=== PATIENT | female | born 2000 | race Caucasian/White ===

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

== ENCOUNTER 2022-01-26 11:28 | Emergency (ER) | payer OTHER ==
[2022-01-26 11:34] VITALS: BP 114/74; PULSE 78; TEMP 98.6; BMI 24.7
== END 2022-01-26 12:00 | disposition left against medical advice (07) ==
LOC: JER 11:28
DX: R06.02 Shortness of breath (principal); R07.9 Chest pain, unspecified
CPT/HCPCS: 93005; 93010; 99281-25

== ENCOUNTER 2022-04-14 00:23 | Emergency (ER) | payer OTHER ==
[2022-04-14 01:03] VITALS: BP 108/75; PULSE 93; TEMP 98.1; BMI 26.5
[2022-04-14] MEDS ORDERED: DEXAMETHASONE 4 MG TABLET (FP) PO ONE (01:15)
[2022-04-14] MEDS ORDERED: ALBUTEROL SO4 2.5/IPRATROPIUM 0.5 INH SOL 3 ML VIAL.NEB. NEB ONE ×2 (01:30→01:45)
[2022-04-14] MEDS ORDERED: DEXAMETHASONE 4 MG TABLET (FP) ONE (01:30)
[2022-04-14] MEDS: ALBUTEROL SO4 2.5/IPRATROPIUM 0.5 INH SOL 3 ML VIAL.NEB. NEB SCH ×2 (01:36→01:51)
== END 2022-04-14 03:14 | disposition home or self-care (01) ==
LOC: JER 00:23
PROC: 3E0F7GC Introduction of Other Therapeutic Substance into Respiratory Tract, Via Natural or Artificial Opening (ICD-10-PCS; principal; 2022-04-14)
DX: J45.901 Unspecified asthma with (acute) exacerbation (principal)
CPT/HCPCS: 99283-25

== ENCOUNTER 2023-05-28 12:58 | Emergency (ER) | payer OTHER ==
[2023-05-28 13:08] VITALS: BP 103/60; PULSE 82; RESP 20; TEMP 98.5; BMI 25.7
[2023-05-28] MEDS ORDERED: DIPHTH,PERTUSS(ACELL),TET 0.5 ML DISP.SYRIN IM ONE ×2 (13:26→13:28)
== END 2023-05-28 14:04 | disposition home or self-care (01) ==
LOC: JERFT 12:58
PROC: 3E0234Z Introduction of Serum, Toxoid and Vaccine into Muscle, Percutaneous Approach (ICD-10-PCS; principal; 2023-05-28)
DX: S91.011A Laceration without foreign body, right ankle, initial encounter (principal); M25.471 Effusion, right ankle; W23.1XXA Caught, crushed, jammed, or pinched between stationary objects, initial encounter; Y93.9 Activity, unspecified; Y92.9 Unspecified place or not applicable
CPT/HCPCS: 90471; 90715; 99285-25

== ENCOUNTER 2023-11-27 09:46 | Emergency (ER) | payer OTHER ==
[2023-11-27 09:50] VITALS: BP 122/72; PULSE 77; RESP 18; TEMP 98.2; BMI 27.4
[2023-11-27] MEDS ORDERED: ALBUTEROL SO4 2.5/IPRATROPIUM 0.5 INH SOL 3 ML VIAL.NEB. NEB ONE ×2 (11:08→11:40)
== END 2023-11-27 13:18 | disposition home or self-care (01) ==
LOC: JERFT 09:46 → JER 09:46 → JERFT 13:18
PROC: 3E0F7GC Introduction of Other Therapeutic Substance into Respiratory Tract, Via Natural or Artificial Opening (ICD-10-PCS; principal; 2023-11-27)
DX: R09.81 Nasal congestion (principal); R05.9 Cough, unspecified; M79.10 Myalgia, unspecified site; R68.83 Chills (without fever); U07.1 COVID-19
CPT/HCPCS: 0241U-QW; 71046-TC-FY; 99284-25

== ENCOUNTER 2024-06-22 11:27 | Emergency (ER) | payer SELFPAY ==
[2024-06-22 11:47] VITALS: BP 106/71; PULSE 66; RESP 18; TEMP 98.6; BMI 26.5
[2024-06-22] MEDS ORDERED: ACETAMINOPHEN 500 MG TABLET (FP) ONE (12:54)
[2024-06-22] MEDS ORDERED: ALBUTEROL SO4 2.5/IPRATROPIUM 0.5 INH SOL 3 ML VIAL.NEB. NEB ONE (12:54)
[2024-06-22] MEDS: ACETAMINOPHEN 500 MG TABLET (FP) PO ONE (12:58)
[2024-06-22] MEDS: ALBUTEROL SO4 2.5/IPRATROPIUM 0.5 INH SOL 3 ML VIAL.NEB. NEB ONE (12:58)
== END 2024-06-22 13:28 | disposition home or self-care (01) ==
LOC: JERFT 11:27
PROC: 3E0F7GC Introduction of Other Therapeutic Substance into Respiratory Tract, Via Natural or Artificial Opening (ICD-10-PCS; principal; 2024-06-22)
DX: J02.9 Acute pharyngitis, unspecified (principal); R09.81 Nasal congestion; R51.9 Headache, unspecified; J06.9 Acute upper respiratory infection, unspecified; R21 Rash and other nonspecific skin eruption
CPT/HCPCS: 87651; 99283-25

== ENCOUNTER 2024-06-25 20:19 | Emergency (ER) | payer SELFPAY ==
[2024-06-25 20:27] VITALS: BP 105/69; PULSE 62; RESP 19; TEMP 98.6; BMI 26.5
[2024-06-25 22:10] LABS: BASO % 0.6 % (0-2.0); EOS % 1.8 % (0-4.5); HEMATOCRIT 40.5 % (32.4-45.2); HEMOGLOBIN 14.1 GM/dL (10.7-15.3); LYMPH % 26.3 % (8-40); MCH 31.3 pg (25.7-33.7); MCHC 34.8 g/dl (32.0-36.0); MEAN PLT VOLUME 7.5 fl (7.5-11.1); MONO % 7.2 % (3.8-10.2); NEUT % 64.1 % (42.8-82.8); PLATELET COUNT 232 10^3/uL (134-434); RDW 12.8 % (11.6-15.6); WHITE BLOOD COUNT 8.8 K/mm3 (4.0-10.0)
[2024-06-25 22:16] LABS: URINE APPEARANCE CLEAR; URINE BILIRUBIN NEGATIVE (NEGATIVE); URINE COLOR YELLOW; URINE GLUCOSE (UA) NEGATIVE (NEGATIVE); URINE KETONE 1+ (NEGATIVE); URINE LEUK ESTERASE NEGATIVE (NEGATIVE); URINE NITRITE NEGATIVE (NEGATIVE); URINE PROTEIN NEGATIVE (NEGATIVE); URINE UROBILINOGEN 0.2 mg/dL (0.2-1.0)
[2024-06-25 22:19] LABS: HCG,QUALITATIVE URINE Negative
[2024-06-25 22:20] LABS: POTASSIUM 4.1 mmol/L (3.5-5.1)
[2024-06-25 22:23] LABS: ALBUMIN 4.2 g/dl (3.4-5.0); CALCIUM 8.9 mg/dL (8.5-10.1)
[2024-06-25 22:24] LABS: BLOOD UREA NITROGEN 15.8 mg/dL (7-18)
[2024-06-25 22:26] LABS: CREATININE 0.7 mg/dL (0.55-1.3)
[2024-06-25 22:27] LABS: BILIRUBIN,TOTAL 0.9 mg/dL (0.2-1); TOT PROT 7.5 g/dl (6.4-8.2)
== END 2024-06-25 22:59 | disposition home or self-care (01) ==
LOC: JERFT 20:19
DX: R11.0 Nausea (principal); R23.2 Flushing; R61 Generalized hyperhidrosis; B34.9 Viral infection, unspecified; R05.9 Cough, unspecified; R09.89 Other specified symptoms and signs involving the circulatory and respiratory systems; H93.8X9 Other specified disorders of ear, unspecified ear
CPT/HCPCS: 36415; 80053; 81003; 84443; 84703; 85025; 86850; 86900; 86901; 99283-25

== ENCOUNTER 2024-08-16 09:21 | Emergency (ER) | payer SELFPAY ==
[2024-08-16 09:36] VITALS: RESP 18; TEMP 98.5; BMI 25.7
[2024-08-16] MEDS ORDERED: KETOROLAC TROMETHAMINE 30 MG/1 ML VIAL ONE (11:50)
[2024-08-16] MEDS ORDERED: METOCLOPRAMIDE HCL INJECTION 10 MG/2 ML VIAL ONE (11:50)
[2024-08-16 12:03] LABS: BASO % 0.7 % (0-2.0); EOS % 9.5 % (0-4.5); HEMATOCRIT 40.4 % (32.4-45.2); HEMOGLOBIN 13.9 GM/dL (10.7-15.3); MCH 31.3 pg (25.7-33.7); MCHC 34.4 g/dl (32.0-36.0); MEAN CELL VOLUME 90.9 fl (80-96); MEAN PLT VOLUME 7.6 fl (7.5-11.1); MONO % 6.8 % (3.8-10.2); PLATELET COUNT 212 10^3/uL (134-434); RBC 4.45 M/mm3 (3.60-5.2); RDW 13.1 % (11.6-15.6); WHITE BLOOD COUNT 6.7 K/mm3 (4.0-10.0)
[2024-08-16 12:06] LABS: URINE APPEARANCE CLOUDY; URINE BILIRUBIN NEGATIVE (NEGATIVE); URINE COLOR YELLOW; URINE GLUCOSE (UA) NEGATIVE (NEGATIVE); URINE KETONE NEGATIVE (NEGATIVE); URINE LEUK ESTERASE NEGATIVE (NEGATIVE); URINE NITRITE NEGATIVE (NEGATIVE); URINE PROTEIN NEGATIVE (NEGATIVE)
[2024-08-16] MEDS: SODIUM CHLORIDE 0.9% 500 ML INFUS.BAG IV ONE (12:09)
[2024-08-16] MEDS: KETOROLAC TROMETHAMINE 30 MG/1 ML VIAL IVPUSH ONE (12:09)
[2024-08-16] MEDS: METOCLOPRAMIDE HCL INJECTION 10 MG/2 ML VIAL IVPB ONE (12:09)
[2024-08-16 12:26] LABS: HCG,QUALITATIVE URINE Negative
[2024-08-16 12:28] LABS: POTASSIUM 4.4 mmol/L (3.5-5.1)
[2024-08-16 12:29] VITALS: BP 108/65; PULSE 66
[2024-08-16 12:30] LABS: ALBUMIN 3.8 g/dl (3.4-5.0); BLOOD UREA NITROGEN 10.6 mg/dL (7-18); CALCIUM 9.4 mg/dL (8.5-10.1)
[2024-08-16 12:33] LABS: CREATININE 0.6 mg/dL (0.55-1.3)
[2024-08-16 12:35] LABS: BILIRUBIN,TOTAL 0.9 mg/dL (0.2-1); TOT PROT 6.7 g/dl (6.4-8.2)
[2024-08-16] MEDS: ALBUTEROL SO4 2.5/IPRATROPIUM 0.5 INH SOL 3 ML VIAL.NEB. NEB ONE (13:06)
[2024-08-16 13:44] LABS: HIV INTERPRETATION NEGATIVE (NEGATIVE)
== END 2024-08-16 13:06 | disposition home or self-care (01) ==
LOC: JER 09:21
PROC: 3E0333Z Introduction of Anti-inflammatory into Peripheral Vein, Percutaneous Approach (ICD-10-PCS; principal; 2024-08-16)
PROC: 3E033GC Introduction of Other Therapeutic Substance into Peripheral Vein, Percutaneous Approach (ICD-10-PCS; 2024-08-16)
DX: R51.9 Headache, unspecified (principal); J45.901 Unspecified asthma with (acute) exacerbation; F17.210 Nicotine dependence, cigarettes, uncomplicated; R07.89 Other chest pain; Z20.822 Contact with and (suspected) exposure to COVID-19
CPT/HCPCS: 0241U-QW; 36415; 80053; 81003; 84703; 85025; 86803; 87086; 87389; 99284-25